=== PATIENT | male | born 1965 | race American Indian/Alaskan Native ===

== ENCOUNTER 2017-05-29 18:48 | Emergency (ER) | payer SELFPAY ==
[2017-05-29] MEDS ORDERED: FUL-GLO OP ONE (20:03)
[2017-05-29] MEDS ORDERED: TETRACAINE 0.5% TP ONE (20:03)
--- NOTE | 2017-05-29 20:27 | Emergency Department Report ---
ED Eye Problem HPI - General Chief complaint: Eye Problems Stated complaint: ALLERGIC REACTION Time Seen by Provider: 05/29/17 20:03 Source: patient Mode of arrival: Ambulatory Limitations: No Limitations - History of Present Illness Initial comments: Patient complain and he thinks a piece of plastic flew into her left eye approximately 6 PM today. He has some swelling around his left eye. He reports on the left side feels scratchy and watery with redness. Tetanus vaccine is up-to-date. Blood pressure is 170 03/31/07 and he denies any history of high blood pressure but does have family history of high blood pressure. Headache, chest pain or shortness of breath. Denies any blurred vision and eye discomfort at 2 out of 10. Denies any loss of vision. MD chief complaint: eye pain, eye redness, foreign body -: This evening Onset Description: sudden Location: left eye Place: home If Injury: other ([facility] opholstery) Eye Symptoms: redness, pain, foreign body sensation Severity: mild Severity scale (0 -10): 2 If Pain, Quality: burning Consistency: constant Context: injury Associated Symptoms: other (swelling around the left eye) Treatments Prior to Arrival: none - Related Data Patient Tetanus UTD: No Previous Rx's Medication Instructions Recorded Last Taken Type Gentamicin 0.3% Ophth Soln 2 drops OP Q8H #1 bottle 05/29/17 Unknown Rx Ibuprofen [Motrin] 600 mg PO Q8H PRN #15 tablet 05/29/17 Unknown Rx Allergies Allergy/AdvReac Type Severity Reaction Status Date / Time No Known Allergies Allergy Verified 05/29/17 19:09 ED Review of Systems ROS: Stated complaint: ALLERGIC REACTION Other details as noted in HPI Comment: All other systems reviewed and negative Constitutional: denies: chills, fever Eyes: eye pain, other (trauma to the left eye). denies: eye discharge, vision change ENT: denies: ear pain, throat pain, congestion Respiratory: no symptoms reported Cardiovascular: denies: chest pain, palpitations, edema, syncope Gastrointestinal: denies: abdominal pain, nausea, vomiting Musculoskeletal: denies: back pain, arthralgia, myalgia Skin: denies: rash Neurological: denies: headache, weakness, numbness, paresthesias, confusion, abnormal gait, vertigo ED Past Medical Hx - Past Medical History Previous Medical History?: No - Surgical History Past Surgical History?: No - Family History Family history: hypertension - Social History Smoking Status: Never Smoker Substance Use Type: None - Medications Home Medications: Home Medications Medication Instructions Recorded Confirmed Last Taken Type Gentamicin 0.3% Ophth Soln 2 drops OP Q8H #1 bottle 05/29/17 Unknown Rx Ibuprofen [Motrin] 600 mg PO Q8H PRN #15 tablet 05/29/17 Unknown Rx ED Physical Exam - General Limitations: No Limitations General appearance: alert, in no apparent distress - Head Head exam: Present: atraumatic, normocephalic, normal inspection - Eye Eye exam: Present: normal appearance, PERRL, EOMI, conjunctival injection, periorbital swelling (left without erythema). Absent: scleral icterus, nystagmus, periorbital tenderness Pupils: Present: normal accommodation - Expanded Eye Exam Expanded Eyelids: Swelling: Bilateral (left periorbital swelling) Pupils: Regular, Round: Bilateral, Reactive: Bilateral Sclera/Conjunctival: Normal Inspection: Right, Injection: Left Anterior chamber: Normal Inspection: Bilateral Posterior chamber: Normal Inspection: Bilateral Visual acuity (R) = 20/: 50 (20/50 both eyes) Visual acuity (L) = 20/: 50 (no glasses or contact) With correction: No - ENT ENT exam: Present: normal exam, normal orophraynx, mucous membranes moist, TM's normal bilaterally, normal external ear exam - Neck Neck exam: Present: normal inspection, full ROM. Absent: tenderness, lymphadenopathy - Respiratory Respiratory exam: Present: normal lung sounds bilaterally, chest wall tenderness. Absent: respiratory distress - Cardiovascular Cardiovascular Exam: Present: regular rate, normal rhythm, normal heart sounds - GI/Abdominal GI/Abdominal exam: Present: soft, normal bowel sounds. Absent: distended, tenderness, guarding, rebound, rigid, bruit, pulsatile mass - Extremities Exam Extremities exam: Present: normal inspection, full ROM - Back Exam Back exam: Present: normal inspection, full ROM. Absent: tenderness, CVA tenderness (R), CVA tenderness (L), muscle spasm, paraspinal tenderness, vertebral tenderness, rash noted - Neurological Exam Neurological exam: Present: alert, oriented X3, normal gait, reflexes normal. Absent: motor sensory deficit - Psychiatric Psychiatric exam: Present: normal affect, normal mood - Skin Skin exam: Present: warm, dry, intact, normal color. Absent: rash ED Course Vital Signs 05/29/17 19:09 Temperature 98.6 F Pulse Rate 80 Respiratory 20 Rate Blood Pressure 175/107 O2 Sat by Pulse 100 Oximetry Vital Signs 05/29/17 05/29/17 19:09 21:46 Temperature 98.6 F Pulse Rate 80 Respiratory 20 Rate Blood Pressure 175/107 Blood Pressure 160/100 [Left] O2 Sat by Pulse 100 Oximetry - Reevaluation(s) Reevaluation #1: 05/29/17 21:53 Patient given tetanus vaccine and procedure note for eye exam testing. - Procedure Description Procedures done: EYE Procedure: Patient left eye examined under Steven lamp. Tetracaine 2 drops instilled and left eye followed by fluorescein stain. I examine on lamp and patient with a left corneal abrasion. Visual acuity is 50- 50 left eye, 50-50 right eye and 50-50 all around. Patient does not wear glasses or contacts but says that he was told that he needs glasses. Tetanus vaccine updated. Tolerated procedure well and ED Medical Decision Making - Medical Decision Making ED course: Patient here report that a piece of purposely hit him in the eye and he is having foreign body sensation with eye pain to dependent without any loss of vision. He has swelling around his left eye. Patient was given Decadron 10 mg IM for left periorbital swelling without erythema or tenderness. See procedure note for steven lamptesting. Patient was found to have left corneal abrasion. He was given Boostrix 0.5 mg emergency and discharged. Prescription for gentamicin ophthalmic and Motrin. He was told to follow-up with ophthalmology. Critical care attestation.: If time is entered above; I have spent that time in minutes in the direct care of this critically ill patient, excluding procedure time. ED Disposition Clinical Impression: Periorbital swelling, Left eye pain, Elevated blood pressure reading without diagnosis of hypertension Corneal abrasion Qualifiers: Encounter type: initial encounter Laterality: left Qualified Code(s): S05.02XA - Injury of conjunctiva and corneal abrasion without foreign body, left eye, initial encounter Disposition: -01 TO HOME OR SELFCARE Is pt being admited?: No Does the pt Need Aspirin: No Condition: Stable Instructions: Corneal Abrasion (ED), Hypertension (ED), Eye Pain (ED) Additional Instructions: Eyedrop left eye as instructed Follow-up with real estate associate attorney in 4 days and call tomorrow to schedule an appointment. Follow up with primary care physician that I refer you to for blood pressure monitoring. Monitor blood pressure daily until the primary care visit and record log Prescriptions: Gentamicin 0.3% Ophth Soln 2 drops OP Q8H #1 bottle Ibuprofen [Motrin] 600 mg PO Q8H PRN #15 tablet PRN Reason: Pain Referrals: SCOTT LIANG MD [Staff Physician] - 06/02/17 TELMA RAND MD [Staff Physician] - 06/02/17 Forms: Accompanied Note, Work/School Release Form(ED)
[2017-05-29] MEDS ORDERED: DECADRON IM STA (20:40)
[2017-05-29] MEDS ORDERED: BOOSTRIX IM ONE (21:05)
[2017-05-29 21:47] VITALS: BP 160/100
== END 2017-05-29 22:20 | disposition home or self-care (01) ==
LOC: ED 18:48
DX: S05.02XA Injury of conjunctiva and corneal abrasion without foreign body, left eye, initial encounter (principal); H05.222 Edema of left orbit; R03.0 Elevated blood-pressure reading, without diagnosis of hypertension; X58.XXXA Exposure to other specified factors, initial encounter; Y93.89 Activity, other specified; Y99.8 Other external cause status; Y92.009 Unspecified place in unspecified non-institutional (private) residence as the place of occurrence of the external cause
CPT/HCPCS: 90471; 90715; 96372; 99283; J1100